=== PATIENT | male | born 1985 | race Hispanic/Latino ===

== ENCOUNTER 2019-03-15 15:51 | Emergency (ER) | payer BC ==
[~2019-03-15] VITALS: Ht 175.3 cm; Wt 90.7 kg
[2019-03-15] MEDS ORDERED: DONNATAL/LIDOCAINE/MAALOX 30 ML SUSP PO ONE (16:00)
[2019-03-15 16:19] LABS: BASOPHILS % 0.1 % (0.0-1.0); EOSINOPHILS % 0.5 % (0.0-6.0); HEMATOCRIT 44.4 % (38.2-49.6); HEMOGLOBIN 14.7 g/dL (14.0-18.0); LYMPHOCYTES # (AUTO) 2.6 (1.0-3.2); LYMPHOCYTES % 34.1 % (18.0-39.1); MEAN CORPUSCULAR HEMOGLOBIN 29.4 pg (28-32); MEAN CORPUSCULAR HGB CONC 33.1 g/dL (31-35); MEAN CORPUSCULAR VOLUME 88.8 fL (81-99); MONOCYTES # (AUTO) 0.9 (0.2-0.8); NEUTROPHILS # (AUTO) 4.1 (2.1-6.9); NEUTROPHILS % 53.2 % (38.7-80.0); PLATELET COUNT 201 x10e3/uL (140-360); RED CELL DISTRIBUTION WIDTH 13.8 % (11.7-14.4)
[2019-03-15 16:28] LABS: INR 1.01; PROTHROMBIN TIME 13.8 seconds (11.9-14.5)
--- NOTE | 2019-03-15 16:28 | NUR ---
PT INFORMED OF NEED TO OBTAIN URINE SPECIMEN, STATES "I CAN'T PEE RIGHT NOW", INFORMED THAT WE WOULD ONLY NEED A SMALL AMOUNT OF URINE FOR UA, STATES WILL ATTEMPT TO VOID IN 15 MIN.
[2019-03-15 16:29] LABS: PARTIAL THROMBOPLASTIN TIME 28.1 seconds (23.8-35.5)
[2019-03-15 16:37] LABS: ALANINE AMINOTRANSFERASE 16 IU/L (0-55); ALBUMIN 4.1 g/dL (3.5-5.0); ALBUMIN/GLOBULIN RATIO 1.3 (0.8-2.0); ALKALINE PHOSPHATASE 72 IU/L (40-150); ANION GAP 14.5 mmol/L (8-16); BLOOD UREA NITROGEN 14 mg/dL (7-26); BUN/CREATININE RATIO 16 (6-25); CARBON DIOXIDE 27 mmol/L (22-29); CHLORIDE 103 mmol/L (98-107); CREATINE KINASE 236 IU/L (30-200); CREATININE, SERUM 0.87 mg/dL (0.72-1.25); EST GLOMERULAR FILTRATION RATE > 60 ML/MIN (60-); GLUCOSE 94 mg/dL (74-118); POTASSIUM 3.5 mmol/L (3.5-5.1); SODIUM 141 mmol/L (136-145)
--- NOTE | 2019-03-15 16:48 | NUR ---
PT STATES THAT HE CANNOT VOID AT THIS TIME, REQUESTING WATER "TO MAKE URINE", GIVEN A CUP OF ICE WATER.
--- NOTE | 2019-03-15 17:10 | Diagnostic Imaging Report ---
EXAMINATION: CHEST SINGLE (PORTABLE) COMPARISON: None INDICATION: ^epigastric pain DISCUSSION: Frontal view of the chest obtained at 1644 hours. HEART AND MEDIASTINUM: The cardiomediastinal silhouette is unremarkable. LINES: None. LUNGS: The lungs are well inflated and clear. No pneumonia or pulmonary edema. PLEURA: No pleural effusion or pneumothorax. BONES AND SOFT TISSUES: There is a well-defined bone island in the proximal right humerus. The soft tissues are normal. IMPRESSION: No acute cardiopulmonary disease. Signed by: Dr. Alec Clarke MD on 03/15/2019 5:06 PM
== END 2019-03-15 17:54 | disposition home or self-care (01) ==
LOC: ER 15:51
DX: R10.13 Epigastric pain (principal); K21.0 Gastro-esophageal reflux disease with esophagitis
CPT/HCPCS: 36415; 71045; 80053; 82550; 82553; 83690; 84484; 85025; 85610; 85730; 93005; 99283